=== PATIENT | male | born 1930 | race Caucasian/White ===

== ENCOUNTER 2018-07-30 11:49 | Inpatient (IN) ==
[2018-07-30] MEDS ORDERED: ALBUTEROL 0.083% NEBU SOLN 3 ML VIAL NEB STA ×2 (12:18→14:50)
[2018-07-30] MEDS ORDERED: SODIUM CHLORIDE 0.9% 1000ML 500 ML IV ONE ×2 (12:18→12:38)
[2018-07-30 12:19] LABS: Hematocrit (blood only) 29.7 % (42-52); Mean Corpuscular Hgb Conc 33.7 g/dL (32-36); Mean Corpuscular Volume 87.9 fL (80-100); Mean Platelet Volume 11.4 fL (7.4-10.4); Platelet Count 164 K/uL (130-400); RDW Coefficient of Variation 12.8 % (11.5-14.5); RDW Standard Deviation 41.6 fL (36.4-46.3); Red Blood Count 3.38 M/uL (4.7-6.1); White Blood Count 12.39 K/uL (4.8-10.8)
--- NOTE | 2018-07-30 12:21 | XRay Report ---
XR chest 1V portable CLINICAL HISTORY: Sepsis COMPARISON STUDY: No previous studies for comparison. FINDINGS: The heart is at the upper limits of normal in size. There is bilateral superior hilar retra ction. There are biapical fibronodular opacities with biapical pleural thickening. The appearance fav ors a chronic process. A superimposed acute inflammatory process would be difficult to exclude withou t the benefit of prior radiographs. Underlying emphysema is suspected. There is no failure. There are no pleural effusions.[ IMPRESSION: Biapical fibronodular opacities with superior hilar retraction. A chronic process is favo red. If prior radiographs could be obtained, they would be of value to confirm this impression. Electronically signed by: Simon Daugherty M.D. 07/30/2018 12:20 PM
[2018-07-30] MEDS ORDERED: LEVOFLOXACIN/D5W 750 MG/150 ML BAG IV STA (12:37)
[2018-07-30] MEDS ORDERED: PIPERACILL/TAZOBAC CONSULT ACTIVE PRN (12:37)
[2018-07-30] MEDS ORDERED: PIPERACILLIN/TAZOBACTAM 4.5 GM/120 ML BAG IV ONE (12:37)
[2018-07-30 12:39] LABS: Albumin Globulin Ratio 0.6 (0.9-2); BUN Creatinine Ratio 17.2 (10-20); Bilirubin,Total 0.4 mg/dl (0.2-1); Calcium 8.9 mg/dl (8.5-10.1); Creatine Kinase MB 2.7 ng/ml (0.5-3.6); Creatinine Clr Calc Pharmacy 45.4 ml/min; Est GFR (African American) 79.5; Est GFR (Non-African American) 68.6; Globulin 4.7 gm/dl (2.5-4.0); Potassium 4.3 mmol/L (3.5-5.1); Total Protein 7.7 gm/dl (6.4-8.2); Troponin I 0.043 ng/ml (0-0.045)
[2018-07-30 12:40] LABS: INR 1.1 (0.9-1.1); Partial Thromboplastin Ratio 1.1; Partial Thromboplastin Time 29.1 Seconds (21.0-31.0); Prothrombin Time 11.3 Seconds (9.0-12.0)
[2018-07-30 12:54] LABS: Appearance Urine Clear (Clear); Bilirubin Urine Negative (Negative); Color Urine Yellow; Glucose Urine UA Negative (Negative); Ketones Urine 1+ (Negative); Leukocyte Esterase Urine Negative (Negative); Nitrite Urine Negative (Negative); Protein Urine 2+ (Negative); Specific Gravity Urine 1.025 (1.000-1.030); Urobilinogen Urine Negative (Negative); pH Urine 5.5 (4.5-7.5)
[2018-07-30 12:56] LABS: Basophils # (auto) 0.03 K/uL (0-0.2); Basophils % (auto) 0.2 %; Dohle Bodies 1+; Eosinophils # (auto) 0.01 K/uL (0-0.5); Eosinophils % (auto) 0.1 %; Immature Granulocytes # (auto) 0.04 K/uL (0.00-0.02); Immature Granulocytes % (auto) 0.3 %; Lymphocytes # (auto) 1.13 K/uL (1.2-3.4); Lymphocytes % (auto) 9.1 %; Monocytes # (auto) 1.35 K/uL (0.11-0.59); Monocytes % (auto) 10.9 %; Neutrophils # (auto) 9.83 K/uL (1.4-6.5); Neutrophils % (auto) 79.4 %
[2018-07-30 13:17] LABS: RBC Urine 0-4 /hpf (0-4)
[2018-07-30 13:18] LABS: Bacteria Urine 1+ (Negative)
[2018-07-30 13:21] LABS: Influenza A virus by PCR Neg for Influ A (Neg); Influenza B virus by PCR Neg for Influ B (Neg)
[2018-07-30 13:24] LABS: Lyme Ab IgM w/WB Rflx Negative (Negative)
[2018-07-30 13:33] LABS: Lyme Ab IgG w/WB Rflx Positive (Negative)
[2018-07-30] MEDS ORDERED: DiphenhydrAMINE HCL 50 MG/ML VIAL IV STA (13:47)
[2018-07-30] MEDS ORDERED: methylPREDNISolone 125 MG/2 ML VIAL IV STA (13:47)
[2018-07-30] MEDS ORDERED: OPTIRAY 320 125ml IV PRN (14:25)
--- NOTE | 2018-07-30 14:35 | CT Scan Report ---
CT ANGIOGRAM OF THE CHEST CLINICAL HISTORY: Shortness of breath. Possible pulmonary embolism. Abnormal chest x-ray. COMPARISON STUDY: Chest x-ray dated 07/30/2018 TECHNIQUE: Following the IV administration of 120 mL of Optiray-320, CT angiogram of the thorax was p erformed from the thoracic inlet to the lung bases utilizing the pulmonary embolus protocol. Images a re reviewed in the axial, sagittal, and coronal planes. IV contrast was administered without complica tion. MIP imaging was performed. A dose lowering technique was utilized adhering to the principles o f ALARA. CT DOSE: 390.36 mGycm FINDINGS: There are mildly enlarged mediastinal and bilateral hilar lymph nodes. There was no evidence of thoracic aortic dilatation. There were no pulmonary artery filling defects to indicate acute pulmonary embolism. The study is somewhat compromised due to respiratory motion artifact. There are small bilateral pleural effusions. There are bilateral upper lobe airspace opacities with a subpleural distribution and associated bronc hiectasis. There are also areas of subpleural calcification. Airspace opacities are also present with in the right middle lobe and right upper lobe. A superimposed infectious/inflammatory process must be considered. IMPRESSION: 1. Examination compromised due to respiratory motion artifact 2. No evidence of acute pulmonary embolism 3. Biapical opacities with associated calcifications and bronchiectasis with upper lobe volume loss. The findings are felt to in part be chronic 4. Mild mediastinal and hilar lymphadenopathy 5. Additional airspace opacities are present within the right upper lobe anteriorly, and right middle lobe. A superimposed acute pneumonia must be considered. Imaging subsequent to treatment is recommen ded in follow-up. Electronically signed by: Simon Daugherty M.D. 07/30/2018 2:34 PM
--- NOTE | 2018-07-30 16:12 | History & Physical Report ---
Date of Service July 30, 2018 Assessment & Plan (1) Pneumonia: Sepsis Meet sepsis criteria (Temp 102.5 and elevated WBC) + pneumonia on CT chest Was seen by PCP office for flu like symptoms today. Had CXR done at the PCP office that indicated possible RUL pneumonia. CTA chest done in the ER showed no evidence of acute pulmonary embolism. Biapical opacities with associated calcifications and bronchiectasis and airspace opacities are present within the right upper lobe anteriorly, and right middle lobe Influenza PCR negative Febrile on admission with elevated WBC Received Zosyn and levaquin and prednisone in the ER Will continue Zosyn for now Received IVF Blood cx and urine cx pending Anaplasma, Ehrlichia and Lyme dx collected in the ER Monitor CBC (2) BPH (benign prostatic hyperplasia): Stable Continue proscar and terazosin (3) Severe aortic stenosis: Last saw cardiology on 07/05/18. During last cardiology appt he was reluctant, about any cardiac procedure such as TAVR, but would like to discuss it again with his next visit in 6 months with his cardiology Stable (4) Glaucoma: Continue Dorzolamide and latanoprost Stable (5) Dyslipidemia: Continue crestor Stable (6) Hyponatremia: Possible related to poor oral intake Na on admission 131 received IVF monitor BMP (7) Anemia: Hgb 10.7 on admission Denies any GI bleeding If H/H continues trending down, will hold aspirin and consult GI Monitor CBC DVT px on heparin subq BID CODE status Full code History of Present Illness Chief Complaint: Flu like symptoms Primary Care Provider: Vance Johnson DO 88 years old male with past medical history of BPH, aortic valve stenosis, dyslipidemia, glaucoma was sent from PCP office for pneumonia. Patient said about 4 days ago he started 12 yellowish productive cough associated with fever, sore throat and runny nose. At the doctor's office she was febrile with temp 102.5. Patient said that he was around young kids last week and also he has been around sick people with similar symptom [place]. He said that he feels weak and he does not have a good appetite. He said he has been having some mild shortness of breath recently. He said that yesterday he had one episode of diarrhea that resolved now. He denies any recent travel. At his PCP office today he had a chest x-ray done that indicated possible right upper lobe pneumonia. Denies any chest pain, palpitation, dizziness, nausea and vomiting. Allergies Allergy/AdvReac Type Severity Reaction Status Date / Time contrast dye Allergy Hives Uncoded 07/30/18 12:45 Home Medications Home Medications Medication Instructions Recorded Confirmed Type aspirin [Aspir-81] 81 mg PO DAILY 07/30/18 07/30/18 History calcium carbonate [Calcium 600] 600 mg PO DAILY 07/30/18 07/30/18 History dorzolamide 1 drp OPB BID 07/30/18 07/30/18 History finasteride [Proscar] 5 mg PO HS 07/30/18 07/30/18 History latanoprost 1 drp OPB QPM 07/30/18 07/30/18 History rosuvastatin 2.5 mg PO DAILY 07/30/18 07/30/18 History terazosin 2 mg PO HS 07/30/18 07/30/18 History Past Med/Surg History Medical History BPH (benign prostatic hyperplasia) Glaucoma Family History Other Family history non-contributory Social History Communication Ability: Effective [employer] Required: No Beliefs That Will Affect Care: None marital status: Single Current Living Situation: Alone current occupational status: employed Other Information That Helps Us Care for You: No Feels Safe at Home: Yes Safety Concerns: Feels Safe At This Time Smoking Status: Never smoker Do You Dip or Chew Tobacco: No Second Hand Exposure: No Tobacco Cessation Education Requested by Patient: No Hx Alcohol Use: No Hx Substance Use: No Review of Systems Review of Systems: All systems reviewed & are unremarkable except as noted in HPI & below Physical Exam Physical Exam: General- No acute distress Head- atraumatic Eyes- PERRL, EOMI, ENT- hearing aid, decrease hearing function Neck- supple, no JVD Lungs- clear to auscultation, No wheezing Heart- regular rhythm; +systolic murmur Abdomen- normal bowel sounds, soft, nontender Extremities- no calf tenderness Neuro- alert, oriented x 3; PERRL, EOMI; no facial palsy; no dysarthria Skin- warm & dry Results & Data Vital Signs (Past 12 Hours) Vital Signs Temp Pulse Pulse Resp BP BP Pulse Ox 07/30/18 15:56 75 16 93 07/30/18 14:38 81 20 127/61 98 07/30/18 12:51 18 96 07/30/18 12:16 37.6 C H 81 22 161/[address] ANGIOGRAM OF THE CHEST CLINICAL HISTORY: Shortness of breath. Possible pulmonary embolism. Abnormal chest x-ray. COMPARISON STUDY: Chest x-ray dated 07/30/2018 TECHNIQUE: Following the IV administration of 120 mL of Optiray-320, CT angiogram of the thorax was performed from the thoracic inlet to the lung bases utilizing the pulmonary embolus protocol. Images are reviewed in the axial, sagittal, and coronal planes. IV contrast was administered without complication. MIP imaging was performed. A dose lowering technique was utilized adhering to the principles of ALARA. CT DOSE: 390.36 mGycm FINDINGS: There are mildly enlarged mediastinal and bilateral hilar lymph nodes. There was no evidence of thoracic aortic dilatation. There were no pulmonary artery filling defects to indicate acute pulmonary embolism. The study is somewhat compromised due to respiratory motion artifact. There are small bilateral pleural effusions. There are bilateral upper lobe airspace opacities with a subpleural distribution and associated bronchiectasis. There are also areas of subpleural calcification. Airspace opacities are also present within the right middle lobe and right upper lobe. A superimposed infectious/inflammatory process must be considered. IMPRESSION: 1. Examination compromised due to respiratory motion artifact 2. No evidence of acute pulmonary embolism 3. Biapical opacities with associated calcifications and bronchiectasis with upper lobe volume loss. The findings are felt to in part be chronic 4. Mild mediastinal and hilar lymphadenopathy 5. Additional airspace opacities are present within the right upper lobe anteriorly, and right middle lobe. A superimposed acute pneumonia must be considered. Imaging subsequent to treatment is recommended in follow-up. Electronically signed by: Simon Daugherty M.D. 07/30/2018 2:34 PM Dictated: 07/30/18 1428 XR chest 1V portable CLINICAL HISTORY: Sepsis COMPARISON STUDY: No previous studies for comparison. FINDINGS: The heart is at the upper limits of normal in size. There is bilateral superior hilar retraction. There are biapical fibronodular opacities with b iapical pleural thickening. The appearance favors a chronic process. A superimposed acute inflammatory process would be difficult to exclude without the benefit of prior radiographs. Underlying emphysema is suspected. There is no failure. There are no pleural effusions.[ IMPRESSION: Biapical fibronodular opacities with superior hilar retraction. A chronic process is favored. If prior radiographs could be obtained, they would be of value to confirm this impression. Electronically signed by: Simon Daugherty M.D. 07/30/2018 12:20 PM Dictated: 07/30/18 1218 Transcribed: 07/30/18 1218
[2018-07-30] MEDS: PIPERACILLIN/TAZOBACTAM 3.375 GM in DEXTROSE 5% 100 ML IV SCH (18:26)
[2018-07-30] MEDS ORDERED: guaiFENesin SUGAR FREE 200 MG/10 ML UDC PO PRN (18:34)
[2018-07-30] MEDS: ALBUT/IPRATROP 3MG/0.5MG NEB 3 ML VIAL NEB SCH (19:25)
--- NOTE | 2018-07-30 20:46 | Emergency Department Note ---
Entered by Mandi Shah acting as a scribe for History of Present Illness General Chief complaint: Shortness of Breath/Dyspnea Stated complaint: weakness Time Seen by Provider: 07/30/18 11:50 Source: patient and EMS History of Present Illness Onset (ago): day(s) (a few days ago) Location: chest Pain Consistency: + other (episode) Quality: + other (shortness of breath) Relieved By: + medication (Tylenol, Zofran) Associated symptoms: + cough, + fever/chills (fever) and + nausea/vomiting (nausea) The patient is an 88 year old male who presents to the ED with complaints of an episode of shortness of breath starting a few days ago. The patient states that he has had flu like symptoms including fevers, a cough, and nausea. He states that he went to the [facility] this morning and they sent him here to the ED for concerns of a possible pneumonia in his right upper lung. He notes that he was around a sick child on Mothers Day and one [place] was also [place]. EMS notes that they gave the patient Tylenol and Zofran on the way in. Home Medications Home Medications Medication Instructions Recorded Confirmed Type aspirin [Aspir-81] 81 mg PO DAILY 07/30/18 07/30/18 History calcium carbonate [Calcium 600] 600 mg PO DAILY 07/30/18 07/30/18 History dorzolamide 1 drp OPB BID 07/30/18 07/30/18 History finasteride [Proscar] 5 mg PO HS 07/30/18 07/30/18 History latanoprost 1 drp OPB QPM 07/30/18 07/30/18 History rosuvastatin 2.5 mg PO DAILY 07/30/18 07/30/18 History terazosin 2 mg PO HS 07/30/18 07/30/18 History Allergies Allergy/AdvReac Type Severity Reaction Status Date / Time contrast dye Allergy Hives Uncoded 07/30/18 12:45 Past Med/Surg History Medical History BPH (benign prostatic hyperplasia) Glaucoma Family History Other Family history non-contributory Social History Communication Ability: Effective Lookback Coordinator Required: No Beliefs That Will Affect Care: None marital status: Single Current Living Situation: Alone current occupational status: employed Other Information That Helps Us Care for You: No Feels Safe at Home: Yes Safety Concerns: Feels Safe At This Time Smoking Status: Never smoker Do You Dip or Chew Tobacco: No Second Hand Exposure: No Tobacco Cessation Education Requested by Patient: No Hx Alcohol Use: No Hx Substance Use: No Review of Systems See HPI for pertinent positives & negatives. and A total of 10 systems reviewed and were otherwise negative Physical Exam Vital Signs Vital Signs - 24 hr 07/30/18 12:16 07/30/18 12:51 07/30/18 14:38 Temperature 37.6 C H Temperature Source Oral Sepsis Recent Fever Within 48 Hours No Sepsis Action Taken by Nursing No Action Required Pulse Rate 81 Pulse Rate [Right Finger] 81 Pulse Rhythm Regular Pulse Rhythm [Right Finger] Regular Pulse Strength Normal Pulse Strength [Right Finger] Normal Respiratory Rate 22 18 20 Respiratory Effort / Characteristics Non-Labored Spontaneous Non-Labored Spontaneous Non-Labored Spontaneous Respiratory Depth Normal Normal Respiratory Pattern Regular Regular Blood Pressure 161/72 H Blood Pressure [Right Arm] 127/61 Blood Pressure Mean 101 Blood Pressure Mean [Right Arm] 83 Blood Pressure Position [Right Arm] Lying Pulse Oximetry 97 96 98 Oxygen Delivery Method Room Air Room Air Room Air 07/30/18 15:38 07/30/18 15:56 Temperature Temperature Source Sepsis Recent Fever Within 48 Hours Sepsis Action Taken by Nursing Pulse Rate Pulse Rate [Right Finger] 84 75 Pulse Rhythm Pulse Rhythm [Right Finger] Pulse Strength Pulse Strength [Right Finger] Respiratory Rate 20 16 Respiratory Effort / Characteristics Non-Labored Spontaneous Respiratory Depth Respiratory Pattern Blood Pressure Blood Pressure [Right Arm] 119/65 Blood Pressure Mean Blood Pressure Mean [Right Arm] 83 Blood Pressure Position [Right Arm] Pulse Oximetry 96 93 Oxygen Delivery Method Room Air GENERAL: Awake, alert, well-appearing, in no acute distress HENT: Normocephalic, atraumatic. Oropharynx unremarkable. EYES: Normal conjunctiva. Sclera non-icteric. NECK: Supple. No nuchal rigidity. FROM. No JVD. RESPIRATORY: Clear to auscultation. CARDIAC: Regular rate, normal rhythm. Extremities warm and well perfused. Pulses equal. ABDOMEN: Soft, non-distended. No tenderness to palpation. No rebound or guarding. No masses. RECTAL: Deferred. MUSCULOSKELETAL: Chest examination reveals no tenderness. The back is s ymmetrical on inspection without obvious abnormality. There is no CVA tenderness to palpation. No joint edema. LOWER EXTREMITIES: Calves are equal size bilaterally and non-tender. No edema. No discoloration. NEURO: Normal sensorium. No sensory or motor deficits noted. SKIN: No rash or jaundice noted. Course 1154: The patient was evaluated in room A4B. A complete history and physical exam was performed. 1148: I reevaluated the patient and updated him on his test results. I discussed the treatment plan with him. He verbally agrees and understands. 1459: I discussed the patient's case with Dr. Maxx Henderson. He will evaluate the patient for further management. Consultations Consultation #1: I discussed the patient's case with Dr. Maxx Henderson. He will evaluate the patient for further management. Time: 14:59 Administered Medications Albuterol (Duoneb) 3 ml NEB QIDR RAVINDRA Stop: 08/29/18 19:59 Last Admin: 07/30/18 19:25 Dose: 3 ml Documented by: [id number] Piperacillin Sod/Tazobactam (Sod 3.375 gm/ Dextrose) 115 mls @ 28.75 mls/hr IV Q8H [facility]; Protocol Stop: 08/06/18 17:59 Last Admin: 07/30/18 18:26 Dose: 28.8 mls/hr Documented by: [id number] Discontinued Medications Albuterol (Ventolin 0.083% 2.5mg/3ml) 2.5 mg NEB NOW STA Stop: 07/30/18 12:19 Last Admin: 07/30/18 12:49 Dose: 2.5 mg Documented by: [id number] Albuterol (Ventolin 0.083% 2.5mg/3ml) 2.5 mg NEB NOW STA Stop: 07/30/18 14:51 Last Admin: 07/30/18 15:56 Dose: 2.5 mg Documented by: [id number] Diphenhydramine HCl (Benadryl) 25 mg IV NOW STA Stop: 07/30/18 13:48 Last Admin: 07/30/18 14:07 Dose: 25 mg Documented by: [id number] Sodium Chloride (Nss 1000ml) 500 mls @ 999 mls/hr IV .Q31M ONE Stop: 07/30/18 12:48 Last Infusion: 07/30/18 14:38 Dose: 0 mls/hr Documented by: [id number] Admin: 07/30/18 12:46 Dose: 999 mls/hr Documented by: [id number] Levofloxacin/Dextrose (Levaquin/D5w) 750 mg in 150 mls @ 100 mls/hr IV NOW STA Stop: 07/30/18 14:06 Last Infusion: 07/30/18 16:57 Dose: 0 mls/hr Documented by: [id number] Admin: 07/30/18 14:30 Dose: 100 mls/hr Documented by: [id number] Sodium Chloride (Nss 1000ml) 500 mls @ 999 mls/hr IV .Q31M ONE Stop: 07/30/18 13:08 Last Infusion: 07/30/18 14:38 Dose: 0 mls/hr Documented by: [id number] Admin: 07/30/18 12:46 Dose: 999 mls/hr Documented by: [id number] Piperacillin Sod/Tazobactam Sod (Zosyn) 4.5 gm in 120 mls @ 240 mls/hr IV NOW ONE Stop: 07/30/18 13:06 Last Infusion: 07/30/18 14:38 Dose: 0 mls/hr Documented by: [id number] Admin: 07/30/18 13:07 Dose: 240 mls/hr Documented by: [id number] Ranitidine HCl 50 mg/ Dextrose 102 mls @ 200 mls/hr IV Q8H RAVNIDRA Stop: 08/29/18 13:59 Last Infusion: 07/30/18 14:37 Dose: 0 mls/hr Documented by: [id number] Admin: 07/30/18 14:08 Dose: 200 mls/hr Documented by: [id number] Infusion: 07/30/18 14:08 Dose: 200 mls/hr Documented by: [id number] Admin: 07/30/18 14:08 Dose: 200 mls/hr Documented by: [id number] Ioversol (Optiray 320 125ml) 120 ml IV ONCE PRN PRN Reason: Interaction Checking Stop: 08/03/18 14:24 Last Admin: 07/30/18 14:25 Dose: 120 ml Documented by: [id number] Methylprednisolone (Solumedrol) 125 mg IV NOW STA Stop: 07/30/18 13:48 Last Admin: 07/30/18 14:08 Dose: 125 mg Documented by: [id number] Medical Decision Making Differential Diagnosis Differential diagnosis: Etiologies such as viral syndrome, otitis, pharyngitis, pneumonia, influenza, meningitis, urinary tract infection, septic arthritis, soft tissue infectious process, intra-abdominal process, sepsis, bacteremia, as well as others were entertained. Medical Records Attestation: I reviewed the patient's medical records. Home Medications Current Medication List: was personally reviewed by co Laboratory Data Attestation: I reviewed the patient's lab results. Result diagrams: 07/30/18 12:00 07/30/18 12:00 Lab Results 07/30/18 07/30/18 07/30/18 Range/Units 12:00 12:00 12:00 WBC 12.39 H (4.8-10.8) K/uL RBC 3.38 L (4.7-6.1) M/uL Hgb 10.0 L (14.0-18.0) g/dL Hct 29.7 L (42-52) % MCV 87.9 (80-100) fL MCH 29.6 (25-34) pg MCHC 33.7 (32-36) g/dL RDW Std Deviation 41.6 (36.4-46.3) fL RDW Coeff of Lazarus 12.8 (11.5-14.5) % Plt Count 164 (130-400) K/uL MPV 11.4 H (7.4-10.4) fL Immature Gran % (Auto) 0.3 % Neut % (Auto) 79.4 % Lymph % (Auto) 9.1 % Adams % (Auto) 10.9 % Eos % (Auto) 0.1 % Baso % (Auto) 0.2 % Immature Gran # (Auto) 0.04 H (0.00-0.02) K/uL Neut # (Auto) 9.83 H (1.4-6.5) K/uL Lymph # (Auto) 1.13 L (1.2-3.4) K/uL Adams # (Auto) 1.35 H (0.11-0.59) K/uL Eos # (Auto) 0.01 (0-0.5) K/uL Baso # (Auto) 0.03 (0-0.2) K/uL Hypersegmented Neuts 1+ Dohle Bodies 1+ PT 11.3 (9.0-12.0) Seconds INR 1.1 (0.9-1.1) APTT 29.1 (21.0-31.0) Seconds PTT Ratio 1.1 Sodium 131 L (136-145) mmol/L Potassium 4.3 (3.5-5.1) mmol/L Chloride 98 (98-107) mmol/L Carbon Dioxide 26 (21-32) mmol/L Anion Gap 7.0 (3-11) BUN 17 (7-18) mg/dl Creatinine 0.98 (0.6-1.4) mg/dl Est Cr Clr Drug Dosing 45.4 ml/min Est GFR ( Amer) 79.5 Est GFR (Non-Af Amer) 68.6 BUN/Creatinine Ratio 17.2 (10-20) Glucose 112 H (70-99) mg/dl Calcium 8.9 (8.5-10.1) mg/dl Total Bilirubin 0.4 (0.2-1) mg/dl AST 39 H (15-37) U/L ALT 28 (12-78) U/L Alkaline Phosphatase 69 (45-117) U/L Total Creatine Kinase 275 (39-308) U/L CK-MB (CK-2) 2.7 (0.5-3.6) ng/ml CK/CKMB % Calc 1.0 (0-3.0) Troponin I 0.043 (0-0.045) ng/ml Total Protein 7.7 (6.4-8.2) gm/dl Albumin 3.0 L (3.4-5.0) gm/dl Globulin 4.7 H (2.5-4.0) gm/dl Albumin/Globulin Ratio 0.6 L (0.9-2) Procalcitonin (0-0.5) ng/ml Urine Color Urine Appearance (Clear) Urine pH (4.5-7.5) Ur Specific [place] (1.000-1.030) Urine Protein (Negative) Urine Glucose (UA) (Negative) Urine Ketones (Negative) Urine Blood (Negative) Urine Nitrite (Negative) Urine Bilirubin (Negative) Urine Urobilinogen (Negative) Ur Leukocyte Esterase (Negative) Urine RBC (0-4) /hpf Urine WBC (0-5) /hpf Ur Epithelial Cells (0-5) /lpf Urine Bacteria (Negative) Lyme Disease IgG Ab (Negative) Lyme Disease IgM Ab (Negative) Influenza Type A (PCR) (Neg) Influenza Type B (PCR) (Neg) 07/30/18 07/30/18 07/30/18 Range/Units 12:00 12:40 12:40 WBC (4.8-10.8) K/uL RBC (4.7-6.1) M/uL Hgb (14.0-18.0) g/dL Hct (42-52) % MCV (80-100) fL MCH (25-34) pg MCHC (32-36) g/dL RDW Std Deviation (36.4-46.3) fL RDW Coeff of Lazarus (11.5-14.5) % Plt Count (130-400) K/uL MPV (7.4-10.4) fL Immature Gran % (Auto) % Neut % (Auto) % Lymph % (Auto) % Adams % (Auto) % Eos % (Auto) % Baso % (Auto) % Immature Gran # (Auto) (0.00-0.02) K/uL Neut # (Auto) (1.4-6.5) K/uL Lymph # (Auto) (1.2-3.4) K/uL Adams # (Auto) (0.11-0.59) K/uL Eos # (Auto) (0-0.5) K/uL Baso # (Auto) (0-0.2) K/uL Hypersegmented Neuts Dohle Bodies PT (9.0-12.0) Seconds INR (0.9-1.1) APTT (21.0-31.0) Seconds PTT Ratio Sodium (136-145) mmol/L Potassium (3.5-5.1) mmol/L Chloride (98-107) mmol/L Carbon Dioxide (21-32) mmol/L Anion Gap (3-11) BUN (7-18) mg/dl Creatinine (0.6-1.4) mg/dl Est Cr Clr Drug Dosing ml/min Est GFR ( Amer) Est GFR (Non-Af Amer) BUN/Creatinine Ratio (10-20) Glucose (70-99) mg/dl Calcium (8.5-10.1) mg/dl Total Bilirubin (0.2-1) mg/dl AST (15-37) U/L ALT (12-78) U/L Alkaline Phosphatase (45-117) U/L Total Creatine Kinase (39-308) U/L CK-MB (CK-2) (0.5-3.6) ng/ml CK/CKMB % Calc (0-3.0) Troponin I (0-0.045) ng/ml Total Protein (6.4-8.2) gm/dl Albumin (3.4-5.0) gm/dl Globulin (2.5-4.0) gm/dl Albumin/Globulin Ratio (0.9-2) Procalcitonin 0.10 (0-0.5) ng/ml Urine Color Yellow Urine Appearance Clear (Clear) Urine pH 5.5 (4.5-7.5) Ur Specific [place] 1.025 (1.000-1.030) Urine Protein 2+ H (Negative) Urine Glucose (UA) Negative (Negative) Urine Ketones 1+ H (Negative) Urine Blood 2+ H (Negative) Urine Nitrite Negative (Negative) Urine Bilirubin Negative (Negative) Urine Urobilinogen Negative (Negative) Ur Leukocyte Esterase Negative (Negative) Urine RBC 0-4 (0-4) /hpf Urine WBC 5-10 H (0-5) /hpf Ur Epithelial Cells 0-5 (0-5) /lpf Urine Bacteria 1+ H (Negative) Lyme Disease IgG Ab Positive A (Negative) Lyme Disease IgM Ab Negative (Negative) Influenza Type A (PCR) Neg for Influ A (Neg) Influenza Type B (PCR) Neg for Influ B (Neg) Imaging Data Radiologist's Impression: Radiology results as stated below per my review and the radiologist's interpretation: XR chest 1V portable CLINICAL HISTORY: Sepsis COMPARISON STUDY: No previous studies for comparison. FINDINGS: The heart is at the upper limits of normal in size. There is bilateral superior hilar retraction. There are biapical fibronodular opacities with biapical pleural thickening. The appearance favors a chronic process. A superimposed acute inflammatory process would be difficult to exclude without the benefit of prior radiographs. Underlying emphysema is suspected. There is no failure. There are no pleural effusions. IMPRESSION: Biapical fibronodular opacities with superior hilar retraction. A chronic process is favored. If prior radiographs could be obtained, they would be of value to confirm this impression. Electronically signed by: Simon Daugherty M.D. 07/30/2018 12:[address] ANGIOGRAM OF THE CHEST CLINICAL HISTORY: Shortness of breath. Possible pulmonary embolism. Abnormal chest x-ray. COMPARISON STUDY: Chest x-ray dated 07/30/2018 TECHNIQUE: Following the IV administration of 120 mL of Optiray-320, CT angiogram of the thorax was performed from the thoracic inlet to the lung bases utilizing the pulmonary embolus protocol. Images are reviewed in the axial, sagittal, and coronal planes. IV contrast was administered without complication. MIP imaging was performed. A dose lowering technique was utilized adhering to the principles of ALARA. CT DOSE: 390.36 mGycm FINDINGS: There are mildly enlarged mediastinal and bilateral hilar lymph nodes. There was no evidence of thoracic aortic dilatation. There were no pulmonary artery filling defects to indicate acute pulmonary embolism. The study is somewhat compromised due to respiratory motion artifact. There are small bilateral pleural effusions. There are bilateral upper lobe airspace opacities with a subpleural distribution and associated bronchiectasis. There are also areas of subpleural calcification. Airspace opacities are also present within the right middle lobe and right upper lobe. A superimposed infectious/inflammatory process must be considered. IMPRESSION: 1. Examination compromised due to respiratory motion artifact 2. No evidence of acute pulmonary embolism 3. Biapical opacities with associated calcifications and bronchiectasis with upper lobe volume loss. The findings are felt to in part be chronic 4. Mild mediastinal and hilar lymphadenopathy 5. Additional airspace opacities are present within the right upper lobe anteriorly, and right middle lobe. A superimposed acute pneumonia must be considered. Imaging subsequent to treatment is recommended in follow-up. Electronically signed by: Simon Daugherty M.D. 07/30/2018 2:34 PM ECG Data Attestation: I personally reviewed and interpreted this ECG as follows: Indication: SOB/dyspnea Rate (beats per minute): 82 Rhythm: sinus rhythm Findings: + other (septal infarct) and + PVC (occassionally); no ST depression and no ST elevation Blood Pressure Blood Pressure Findings: Normal blood pressure Blood Pressure Disposition: did not require urgent referral MDM Narrative This is an 88-year-old male who was sent in by his primary care physician's office over concerns that the patient has pneumonia. The patient was given Tylenol in the ambulance and was running a fever earlier. He has been sick for 5 days. His chest x-ray is concerning for chronic processes therefore he was sent for CAT scan of the chest. This is concerning for pneumonia in 2 lobes. I did discuss the case with the hospitalist service who agreed to admit the patient. Patient was given albuterol breathing treatments blood cultures were obtained and the patient was started on Zosyn. Patient was in agreement with the treatment plan. Impression & Plan Pneumonia Discharge Plan Visit Data *Final* Discharge Date/Time: 07/30/18 16:56 Chief Complaint: Shortness of Breath/Dyspnea Stated Complaint: weakness ED Provider: Ulysses Jenkins Discharge Problem: Pneumonia Patient Disposition: Admitted As Inpatient Discharge Instructions Interventions: ED Discharge Assessment Last Done: 07/30/18 16:56 The scribe's documentation has been prepared under my direction and personally reviewed by me in its entirety. I confirm that the note above accurately reflects all work, treatment, procedures, and medical decision making performed by me.
[2018-07-30] MEDS: TERAZOSIN HCL 1 MG CAP PO SCH (21:30)
[2018-07-30] MEDS: DORZOLAMIDE HCL 2% OPH SOLN 10 ML BTL OPB SCH (21:30)
[2018-07-30] MEDS: FINASTERIDE 5 MG TAB PO SCH (21:30)
[2018-07-30] MEDS: LATANOPROST 0.005% OP SOLN 2.5 ML BTL OPB SCH (21:31)
[2018-07-31] MEDS: PIPERACILLIN/TAZOBACTAM 3.375 GM in DEXTROSE 5% 100 ML IV SCH ×3 (02:22→18:06)
[2018-07-31 05:54] LABS: Hematocrit (blood only) 30.1 % (42-52); Hemoglobin 10.1 g/dL (14.0-18.0); Mean Corpuscular Hgb Conc 33.6 g/dL (32-36); Mean Corpuscular Volume 88.3 fL (80-100); Mean Platelet Volume 11.3 fL (7.4-10.4); Platelet Count 165 K/uL (130-400); Red Blood Count 3.41 M/uL (4.7-6.1); White Blood Count 12.53 K/uL (4.8-10.8)
[2018-07-31 06:31] LABS: BUN Creatinine Ratio 16.8 (10-20); Calcium 8.6 mg/dl (8.5-10.1); Creatinine Clr Calc Pharmacy 41.6 ml/min; Est GFR (African American) 71.5; Est GFR (Non-African American) 61.7; Potassium 4.1 mmol/L (3.5-5.1)
[2018-07-31] MEDS: ALBUT/IPRATROP 3MG/0.5MG NEB 3 ML VIAL NEB SCH ×4 (07:07→19:16)
[2018-07-31] MEDS: ENOXAPARIN INJ 30 MG/0.3 ML SYR SQ SCH (07:23)
[2018-07-31] MEDS: ASPIRIN 81 MG ECTAB PO SCH (07:23)
[2018-07-31] MEDS: ROSUVASTATIN CALCIUM 5 MG TAB PO SCH (07:23)
[2018-07-31] MEDS: DORZOLAMIDE HCL 2% OPH SOLN 10 ML BTL OPB SCH ×2 (07:24→21:01)
--- NOTE | 2018-07-31 20:35 | Hospitalist Progress Note ---
Date of Service July 31, 2018 Assessment & Plan (1) Pneumonia: Sepsis Meet sepsis criteria (Temp 102.5 and elevated WBC) + pneumonia on CT chest Was seen by PCP office for flu like symptoms today. Had CXR done at the PCP office that indicated possible RUL pneumonia. CTA chest done in the ER showed no evidence of acute pulmonary embolism. Biapical opacities with associated calcifications and bronchiectasis and airspace opacities are present within the right upper lobe anteriorly, and right middle lobe Influenza PCR negative Febrile on admission with elevated WBC Received Zosyn and levaquin and prednisone in the ER Continue IV zosyn Blood cx pending Anaplasma, Ehrlichia and Lyme dx pending Monitor CBC (2) BPH (benign prostatic hyperplasia): Stable Continue proscar and terazosin (3) Severe aortic stenosis: Last saw cardiology on 07/05/18. During last cardiology appt he was reluctant, about any cardiac procedure such as TAVR, but would like to discuss it again with his next visit in 6 months with his cardiology Stable (4) Glaucoma: Continue Dorzolamide and latanoprost Stable (5) Dyslipidemia: Continue crestor Stable (6) Hyponatremia: Possible related to poor oral intake Na on admission 131, improves to 133 today received IVF monitor BMP (7) Anemia: Hgb 10.7 on admission Denies any GI bleeding If H/H continues trending down, will hold aspirin and consult GI Monitor CBC DVT px on heparin Lovenox daily CODE status Full code Disposition Possible discharge tomorrow Subjective Pt was seen and examined Sitting in chair with no distress Pt said that his breathing is much better He has been working in the hallway with no problem He said that he feels his balance a little off Denies any chest pain, palpitation and SOB Physical Exam Physical Exam: General- No acute distress Head- atraumatic Eyes- PERRL, EOMI, ENT- hearing aid, decrease hearing function Neck- supple, no JVD Lungs- clear to auscultation, No wheezing Heart- regular rhythm; +systolic murmur Abdomen- normal bowel sounds, soft, nontender Extremities- no calf tenderness Neuro- alert, oriented x 3; PERRL, EOMI; no facial palsy; no dysarthria Skin- warm & dry Results & Data Vital Signs (Past 12 Hours) Vital Signs Temp Pulse Resp BP Pulse Ox 07/31/18 19:17 74 16 98 07/31/18 15:19 36.6 C 97 H 20 128/58 L 97 07/31/18 15:09 65 16 98 07/31/18 11:05 65 17 97
[2018-07-31] MEDS: LATANOPROST 0.005% OP SOLN 2.5 ML BTL OPB SCH (21:02)
[2018-07-31] MEDS: FINASTERIDE 5 MG TAB PO SCH (21:03)
[2018-07-31] MEDS: TERAZOSIN HCL 1 MG CAP PO SCH (21:03)
[2018-08-01] MEDS: PIPERACILLIN/TAZOBACTAM 3.375 GM in DEXTROSE 5% 100 ML IV SCH ×2 (02:28→09:52)
[2018-08-01] MEDS: ALBUT/IPRATROP 3MG/0.5MG NEB 3 ML VIAL NEB SCH ×3 (06:55→15:33)
[2018-08-01] MEDS: ROSUVASTATIN CALCIUM 5 MG TAB PO SCH (07:50)
[2018-08-01] MEDS: ENOXAPARIN INJ 30 MG/0.3 ML SYR SQ SCH (07:50)
[2018-08-01] MEDS: DORZOLAMIDE HCL 2% OPH SOLN 10 ML BTL OPB SCH (07:50)
[2018-08-01] MEDS: ASPIRIN 81 MG ECTAB PO SCH (07:50)
[2018-08-01 08:16] LABS: Hematocrit (blood only) 31.1 % (42-52); Mean Corpuscular Hgb Conc 35.4 g/dL (32-36); Mean Corpuscular Volume 86.9 fL (80-100); Mean Platelet Volume 11.1 fL (7.4-10.4); Platelet Count 215 K/uL (130-400); RDW Coefficient of Variation 13.1 % (11.5-14.5); RDW Standard Deviation 42.4 fL (36.4-46.3); Red Blood Count 3.58 M/uL (4.7-6.1); White Blood Count 18.09 K/uL (4.8-10.8)
[2018-08-01] MEDS ORDERED: predniSONE 20 MG TAB PO SCH (14:30)
--- NOTE | 2018-08-01 15:03 | Hospitalist Progress Note ---
Date of Service August 01, 2018 Assessment & Plan (1) Pneumonia: Sepsis Meet sepsis criteria (Temp 102.5 and elevated WBC) + pneumonia on CT chest Was seen by PCP office for flu like symptoms today. Had CXR done at the PCP office that indicated possible RUL pneumonia. CTA chest done in the ER showed no evidence of acute pulmonary embolism. Biapical opacities with associated calcifications and bronchiectasis and airspace opacities are present within the right upper lobe anteriorly, and right middle lobe Influenza PCR negative Febrile on admission with elevated WBC Received Zosyn and levaquin and solumedrol in the ER Continue IV zosyn WBC elevated today possible related to steroid Has been afebrile Blood cx no growth Lyme IgG Ab positive Anaplasma, Ehrlichia and Lyme dx pending (2) BPH (benign prostatic hyperplasia): Stable Continue proscar and terazosin (3) Severe aortic stenosis: Last saw cardiology on 07/05/18. During last cardiology appt he was reluctant, about any cardiac procedure such as TAVR, but would like to discuss it again with his next visit in 6 months with his cardiology Stable (4) Glaucoma: Continue Dorzolamide and latanoprost Stable (5) Dyslipidemia: Continue crestor Stable (6) Hyponatremia: Possible related to poor oral intake Na on admission 131, improves to 133 received IVF monitor BMP (7) Anemia: Hgb 10.7 on admission Denies any GI bleeding Hgb stable today Monitor CBC DVT px on heparin Lovenox daily CODE status Full code Disposition Possible discharge today Follow up with your PCP Subjective Pt was seen and examined Sitting in bed with no distress Pt said that he feels fine today He said that cough improves He walked in the hallway with no distress Denies any chest pain, palpitation, dizziness and SOB Physical Exam Physical Exam: General- No acute distress Head- atraumatic Eyes- PERRL, EOMI, ENT- hearing aid, decrease hearing function Neck- supple, no JVD Lungs-+mild rhonchi Heart- regular rhythm; +systolic murmur Abdomen- normal bowel sounds, soft, nontender Extremities- no calf tenderness Neuro- alert, oriented x 3; PERRL, EOMI; no facial palsy; no dysarthria Skin- warm & dry Results & Data Vital Signs (Past 12 Hours) Vital Signs Temp Pulse Resp BP Pulse Ox 08/01/18 10:53 76 18 97 08/01/18 07:51 36.7 C 102 H 18 126/59 L 99 08/01/18 06:56 75 16 97
[2018-08-01] MEDS ORDERED: levoFLOXacin 750 MG TAB PO SCH (16:00)
--- NOTE | 2018-08-02 01:27 | Discharge Summary ---
Date of Service August 01, 2018 Admission HPI Per Admitting Provider 88 years old male with past medical history of BPH, aortic valve stenosis, dyslipidemia, glaucoma was sent from PCP office for pneumonia. Patient said about 4 days ago he started 12 yellowish productive cough associated with fever, sore throat and runny nose. At the doctor's office she was febrile with temp 102.5. Patient said that he was around young kids last week and also he has been around sick people with similar symptom [place]. He said that he feels weak and he does not have a good appetite. He said he has been having some mild shortness of breath recently. He said that yesterday he had one episode of diarrhea that resolved now. He denies any recent travel. At his PCP office today he had a chest x-ray done that indicated possible right upper lobe pneumonia. Denies any chest pain, palpitation, dizziness, nausea and vomiting. Admission Exam Per Admitting Provider General- No acute distress Head- atraumatic Eyes- PERRL, EOMI, ENT- hearing aid, decrease hearing function Neck- supple, no JVD Lungs- clear to auscultation, No wheezing Heart- regular rhythm; +systolic murmur Abdomen- normal bowel sounds, soft, nontender Extremities- no calf tenderness Neuro- alert, oriented x 3; PERRL, EOMI; no facial palsy; no dysarthria Skin- warm & dry Principal Diagnosis Sepsis Pneumonia BPH Severe aortic stenosis Hyponaremia Anemia Discharge Exam General- No acute distress Head- atraumatic Eyes- PERRL, EOMI, ENT- hearing aid, decrease hearing function Neck- supple, no JVD Lungs-+mild rhonchi Heart- regular rhythm; +systolic murmur Abdomen- normal bowel sounds, soft, nontender Extremities- no calf tenderness Neuro- alert, oriented x 3; PERRL, EOMI; no facial palsy; no dysarthria Skin- warm & dry Discharge Data Allergies Allergy/AdvReac Type Severity Reaction Status Date / Time contrast dye Allergy Hives Uncoded 07/30/18 12:45 Consultations 07/30/18 15:00 ED Decision to Admit Stat Ordered Studies 07/30/18 12:37 CT angio chest PE protocol Stat CT ANGIOGRAM OF THE CHEST CLINICAL HISTORY: Shortness of breath. Possible pulmonary embolism. Abnormal chest x-ray. COMPARISON STUDY: Chest x-ray dated 07/30/2018 TECHNIQUE: Following the IV administration of 120 mL of Optiray-320, CT angiogram of the thorax was performed from the thoracic inlet to the lung bases utilizing the pulmonary embolus protocol. Images are reviewed in the axial, sagittal, and coronal planes. IV contrast was administered without complication. MIP imaging was performed. A dose lowering technique was utilized adhering to the principles of ALARA. CT DOSE: 390.36 mGycm FINDINGS: There are mildly enlarged mediastinal and bilateral hilar lymph nodes. There was no evidence of thoracic aortic dilatation. There were no pulmonary artery filling defects to indicate acute pulmonary embolism. The study is somewhat compromised due to respiratory motion artifact. There are small bilateral pleural effusions. There are bilateral upper lobe airspace opacities with a subpleural distribution and associated bronchiectasis. There are also areas of subpleural calcification. Airspace opacities are also present within the right middle lobe and right upper lobe. A superimposed infectious/inflammatory process must be considered. IMPRESSION: 1. Examination compromised due to respiratory motion artifact 2. No evidence of acute pulmonary embolism 3. Biapical opacities with associated calcifications and bronchiectasis with upper lobe volume loss. The findings are felt to in part be chronic 4. Mild mediastinal and hilar lymphadenopathy 5. Additional airspace opacities are present within the right upper lobe anteriorly, and right middle lobe. A superimposed acute pneumonia must be considered. Imaging subsequent to treatment is recommended in follow-up. Electronically signed by: Simon Daugherty M.D. 07/30/2018 2:34 PM Dictated: 07/30/18 1428 Transcribed: 07/30/18 1428 XR chest 1V portable CLINICAL HISTORY: Sepsis COMPARISON STUDY: No previous studies for comparison. FINDINGS: The heart is at the upper limits of normal in size. There is bilateral superior hilar retraction. There are biapical fibronodular opacities with biapical pleural thickening. The appearance favors a chronic process. A superimposed acute inflammatory process would be difficult to exclude without the benefit of prior radiographs. Underlying emphysema is suspected. There is no failure. There are no pleural effusions.[ IMPRESSION: Biapical fibronodular opacities with superior hilar retraction. A chronic process is favored. If prior radiographs could be obtained, they would be of value to confirm this impression. Electronically signed by: Simon Daugherty M.D. 07/30/2018 12:20 PM Dictated: 07/30/18 1218 Transcribed: 07/30/18 1218 Hospital Course (1) Pneumonia: Sepsis Meet sepsis criteria (Temp 102.5 and elevated WBC) + pneumonia on CT chest Was seen by PCP office for flu like symptoms today. Had CXR done at the PCP office that indicated possible RUL pneumonia. CTA chest done in the ER showed no evidence of acute pulmonary embolism. Biapical opacities with associated calcifications and bronchiectasis and airspa ce opacities are present within the right upper lobe anteriorly, and right middle lobe Influenza PCR negative Febrile on admission with elevated WBC Received Zosyn and levaquin and solumedrol in the ER Continue IV zosyn WBC elevated today possible related to steroid Has been afebrile Blood cx no growth Lyme IgG Ab positive Anaplasma, Ehrlichia and Lyme dx pending (2) BPH (benign prostatic hyperplasia): Stable Continue proscar and terazosin (3) Severe aortic stenosis: Last saw cardiology on 07/05/18. During last cardiology appt he was reluctant, about any cardiac procedure such as TAVR, but would like to discuss it again with his next visit in 6 months with his cardiology Stable (4) Glaucoma: Continue Dorzolamide and latanoprost Stable (5) Dyslipidemia: Continue crestor Stable (6) Hyponatremia: Possible related to poor oral intake Na on admission 131, improves to 133 received IVF monitor BMP (7) Anemia: Hgb 10.7 on admission Denies any GI bleeding Hgb stable today Monitor CBC DVT px on heparin Lovenox daily CODE status Full code Disposition Possible discharge today Follow up with your PCP Total Time Total Time Spent Total Time Spent (In Minutes): 35 minutes Total Time Includes: Examination of the Patient, Discharge Planning, Medication Reconciliation, Communication With Other Providers and Other Discharge Plan Discharge Items Patient Disposition: Home - Self-Care Reason For Visit: PNEUMONIA Discharge Diagnosis: Sepsis Pneumonia BPH Severe aortic stenosis Hyponaremia Anemia Discharge Goals: Decrease discomfort, Improve disease control, Improve function and Increase independence Activity: Resume your previous activity Activity Comment: As tolerated Non-emergency contact: Primary Care Provider Call non-emergency contact if: you have any medication questions and your temperature is above 101 Follow-up/Referrals: Vance Johnson, [Primary Care Provider] - Diet: Heart Healthy Add Provider Instructions: Follow up appointment with your primary care provider Dr. Loyd on 08/06 @ 1:45 PM Complete the course of antibiotic Your physician will follow the result for your lyme disease and anaplasmosis that are pending now Check BMP in 1 week to monitor sodium level Check CBC in 1 week to monitor WBC Fall precaution Prescriptions: New prednisone 20 mg tablet 20 mg PO DAILY Qty: 5 RF: 0 levofloxacin 500 mg Tablet 500 mg PO DAILY@1100 Qty: 5 RF: 0 guaifenesin 200 mg tablet 200 mg PO TID PRN (Reason: congestion) 5 Days Qty: 15 RF: 0 Continued latanoprost 0.005 % drops 1 drp OPB QPM RF: 0 aspirin [Aspir-81] 81 mg Tablet,Delayed Release (Dr/Ec) 81 mg PO DAILY RF: 0 calcium carbonate [Calcium 600] 600 mg calcium (1,500 mg) Tablet 600 mg PO DAILY RF: 0 terazosin 2 mg Capsule 2 mg PO HS RF: 0 finasteride [Proscar] 5 mg Tablet 5 mg PO HS RF: 0 dorzolamide 2 % Drops 1 drp OPB BID RF: 0 rosuvastatin 5 mg Tablet 2.5 mg PO DAILY RF: 0 Stand-Alone Forms: [facility] Discharge Orders: Discharge Order (Routine); Ordered 08/01/18 Ordered By: Abimael Plunkett Admission Data Admit Date/Time: 07/30/18 16:14 Attending Provider: Abimael Plunkett Admit Provider: Abimael Plunkett Primary Care Provider: Vance Johnson Other Providers: Abimael Plunkett ; Jorge Katz Service: Medical Other Interventions: Discharge Summary Assessment (RN) Last Done: 08/01/18 15:38 DC Date/Time DO NOT enter until pt leaves facility: 08/01/18 16:00
[2018-08-02 21:24] LABS: Anaplasma phagocytophila IgM <1:20 (<1:20); Ehrlichia chaff IgG Ab <1:64 (<1:64); Ehrlichia chaff IgM Ab <1:20 (<1:20)
[2018-08-03 04:26] LABS: 18KDIGG Band NONREACTIVE (NONREACTIVE); 23KDIGG Band NONREACTIVE (NONREACTIVE); 23KDIGM Band NONREACTIVE (NONREACTIVE); 28KDIGG Band NONREACTIVE (NONREACTIVE); 30KDIGG Band NONREACTIVE (NONREACTIVE); 39KDIGG Band NONREACTIVE (NONREACTIVE); 39KDIGM Band NONREACTIVE (NONREACTIVE); 41KDIGG Band REACTIVE (NONREACTIVE); 41KDIGM Band NONREACTIVE (NONREACTIVE); 45KDIGG Band NONREACTIVE (NONREACTIVE); 58KDIGG Band NONREACTIVE (NONREACTIVE); 66KDIGG Band REACTIVE (NONREACTIVE); 93KDIGG Band NONREACTIVE (NONREACTIVE); Lyme Antibodies, WB IgG NEGATIVE (NEGATIVE); Lyme Antibodies, WB IgM NEGATIVE (NEGATIVE)
== END 2018-08-01 16:00 | disposition home or self-care (01) | DRG 871 ==
LOC: ED 11:49 → 4W 16:14 → SUATTDRO 16:14 → 4W 16:56

== ENCOUNTER 2019-05-13 12:59 | Inpatient (IN) ==
[2019-05-13 15:55] LABS: Basophils # (auto) 0.02 K/uL (0-0.2); Basophils % (auto) 0.3 %; Eosinophils # (auto) 0.09 K/uL (0-0.5); Eosinophils % (auto) 1.5 %; Hematocrit (blood only) 33.9 % (42-52); Immature Granulocytes # (auto) 0.01 K/uL (0.00-0.02); Immature Granulocytes % (auto) 0.2 %; Lymphocytes # (auto) 1.53 K/uL (1.2-3.4); Lymphocytes % (auto) 25.3 %; Mean Corpuscular Hemoglobin 29.6 pg (25-34); Mean Corpuscular Hgb Conc 32.4 g/dL (32-36); Mean Corpuscular Volume 91.4 fL (80-100); Mean Platelet Volume 11.4 fL (7.4-10.4); Monocytes % (auto) 9.9 %; Neutrophils # (auto) 3.79 K/uL (1.4-6.5); Neutrophils % (auto) 62.8 %; Platelet Count 169 K/uL (130-400); RDW Coefficient of Variation 13.1 % (11.5-14.5); RDW Standard Deviation 44.2 fL (36.4-46.3); Red Blood Count 3.71 M/uL (4.7-6.1); White Blood Count 6.04 K/uL (4.8-10.8)
--- NOTE | 2019-05-13 15:58 | XRay Report ---
XR chest 1V portable HISTORY: Hypertension COMPARISON: Chest 07/30/2018. FINDINGS: No pneumothorax. No pleural effusions. The heart is normal in size. Biapical reticulonodula r interstitial thickening and pleural thickening remains unchanged. No new focal lung consolidations. No evidence for pulmonary edema. IMPRESSION: Chronic biapical reticulonodular thickening persists. No new focal lung consolidations. ACT 112: Negative or not required by law. Electronically signed by: Chente Barros M.D. 05/13/2019 3:57 PM
[2019-05-13 16:10] LABS: Alanine Aminotransferase 16 U/L (12-78); Albumin Level 3.5 gm/dl (3.4-5.0); Aspartate Aminotransferase 19 U/L (15-37); BUN Creatinine Ratio 24.6 (10-20); Blood Urea Nitrogen 24 mg/dl (7-18); Carbon Dioxide 25 mmol/L (21-32); Chloride 104 mmol/L (98-107); Est GFR (African American) 79.9; Est GFR (Non-African American) 68.9; Glucose 103 mg/dl (70-99); Potassium 4.6 mmol/L (3.5-5.1); Sodium 135 mmol/L (136-145)
--- NOTE | 2019-05-13 16:12 | CT Scan Report ---
CT head/brain wo con CT DOSE: 537.48 mGy.cm HISTORY: Mental status change dizzy/visual blurring eval for cva/bleed TECHNIQUE: Multiaxial CT images of the head were performed without the use of intravenous contrast. A dose lowering technique was utilized adhering to the principles of ALARA. Comparison: None. Findings: Moderate mucosal thickening left maxillary sinus. Remaining sinuses are clear. The calvariu m and skull base are intact. The ventricles and sulci are within normal limits. There is no mass, hem atoma, midline shift, or acute infarct. Impression: No acute intracranial abnormality. ACT 112: Negative or not required by law. The above report was generated using voice recognition software. It may contain grammatical, syntax or spelling errors. Electronically signed by: Fabian Chou M.D. 05/13/2019 4:10 PM
[2019-05-13 16:16] LABS: Albumin Globulin Ratio 0.9 (0.9-2); Alkaline Phosphatase 65 U/L (45-117); Bilirubin,Total 0.2 mg/dl (0.2-1); Total Protein 7.5 gm/dl (6.4-8.2); Troponin I 0.094 ng/ml (0-0.045)
[2019-05-13] MEDS ORDERED: LABETALOL HCL IV 5 MG/ML 20ML IV STA ×2 (16:37→19:31)
--- NOTE | 2019-05-13 16:45 | Electrocardiogram Report ---
Test Reason : Blood Pressure : / mmHG Vent. Rate : 060 BPM Atrial Rate : 060 BPM P-R Int : 166 ms QRS Dur : 088 ms QT Int : 436 ms P-R-T Axes : 051 039 057 degrees QTc Int : 436 ms Normal sinus rhythm Septal infarct (cited on or before 13-MAY-2019) Abnormal ECG When compared with ECG of 30-JUL-2018 12:37, Premature ventricular complexes are no longer Present Premature atrial complexes are no longer Present Questionable change in initial forces of Septal leads Confirmed by Karthik Elizabeth ([id number]) on 05/13/2019 4:45:16 PM Referred By: ED Confirmed By:Karthik Elizabeth
[2019-05-13] MEDS ORDERED: lisinopriL 5 MG TAB PO STA (17:32)
--- NOTE | 2019-05-13 17:42 | History & Physical Report ---
Date of Service May 13, 2019 Assessment & Plan (1) HTN (hypertension): Pt is 89 y/o M with PMH BPH, severe aortic stenosis, HTN presented to ER with complaint of episode of dizziness. Today with dizziness after walking 1/4mile with some blurry vision. Reported dizziness 2 days ago with walking. Denies CP, SOB, paresthesias, syncope. Started on lisinopril 10mg daily 4 days ago. No current symptoms HTN Urgency In ER afebrile, PA: 65, RR: 18, BP 210/78 down to 176/92 without medication, 97% on room air. No leukocytosis, H/H: , BUN: 24, Cr: 0.97, GFR: 68, CXR: no acute changes CT Head no acute changes -ER had ordered labetalol, however was held secondary to P: 58 -Continue lisinopril daily -Add amlodipine 2.5mg daily -UA pending -orthostatic vitals -Monitor CBC, BMP (2) Elevated troponin: Troponin: 0.094. EKG: sinus rhythm, q waves septal, LVH changes No CP, SOB Recent echo on 04/29/2019: Echo: EF: 63%, grade 1 diastolic dysfunction, severe aortic stenosis. -Trend troponin (3) Severe aortic stenosis: Following with cardiology. (4) BPH (benign prostatic hyperplasia): Pt had stopped finasteride and flomax several weeks ago secondary to thinking new bottle of medications caused him to have palpitation. Since with increased trouble with urination -Will restart tamsulosin and finasteride DVT Prophylaxis -Heparin SQ admit tele DNR/DNI as per discussion with pt Follows with Dr Johnson and [facility] for routine care Pt was seen and care coordinated with Dr Katz. See addendum History of Present Illness Chief Complaint: Dizziness Primary Care Provider: Vance Johnson, Pt is 89 y/o M with PMH BPH, severe aortic stenosis, HTN presented to ER with complaint of episode of dizziness today. Patient reports was started on lisinopril 10 mg daily 4 days ago by [place] [facility] in [place] for elevated BPs. Patient states he was found to have elevated blood pressure at [place] [facility] and at home BP readings for a week with continued elevated blood pressure. Patient states 2 days ago had dizziness with walking which resolved with sitting. Patient states this morning walked approximately fourth mile outside when he had onset of dizziness with blurry vision to his left eye. 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 Patient states stood still and stopped walking and symptoms resolved. He did not have his lisinopril this morning. Denies headache, syncope, chest pain, shortness of breath, palpitations, extremity weakness or paresthesias. Denies fever/chills, diaphoresis, N/V/D/C, syncope, neck pain, orthopnea, cough, sore throat, choking, otalgia, rhinorrhea, abdominal pain, paresthesias, weakness, extremity weakness, extremity edema, rashes, dysuria, hematuria. Patient followed with Dr. Anders on 04/25/2019 for reported bradycardia at night. At that time patient reported stopping taking finasteride and Flomax as he got a new bottle of medication he thought it was causing his heart to skip a beat. Reports since stopping medication he has been having difficulty with urination. 04/2019 - Had Holter monitor which showed sinus rhythm with tendency towards bradycardia, occasional PACs, rare PVCs, however couplets and bigeminy. No sy mptoms reported by patient, max heart rate 98, minimum heart rate 43, average heart rate 61. 04/29/2019: Echo: EF: 63%, grade 1 diastolic dysfunction, severe aortic stenosis. Allergies Allergy/AdvReac Type Severity Reaction Status Date / Time contrast dye Allergy Hives Uncoded 05/13/19 15:44 Home Medications Home Medications Medication Instructions Recorded Confirmed Type aspirin [Aspir-81] 81 mg PO DAILY 07/30/18 05/13/19 History calcium carbonate [Calcium 600] 600 mg PO DAILY 07/30/18 05/13/19 History dorzolamide 1 drp OPB BID 07/30/18 05/13/19 History finasteride [Proscar] 5 mg PO HS 07/30/18 05/13/19 History latanoprost 1 drp OPB QPM 07/30/18 05/13/19 History rosuvastatin 2.5 mg PO DAILY 07/30/18 05/13/19 History lisinopril 10 mg PO DAILY 05/13/19 05/13/19 History tamsulosin 0.4 mg PO DAILY 05/13/19 05/13/19 History Past Med/Surg History Medical History BPH (benign prostatic hyperplasia) Glaucoma Family History Other Diabetes Heart disease Hypertension Social History Preferred Language: Macedonian Communication Ability: Effective [employer] Required: No Beliefs That Will Affect Care: None marital status: Single Current Living Situation: Alone current occupational status: employed Feels Safe at Home: Yes Safety Concerns: Feels Safe At This Time Smoking Status: Never smoker Second Hand Exposure: No ; Hx Alcohol Use: No Hx Substance Use: No Review of Systems Review of Systems: All systems reviewed & are unremarkable except as noted in HPI & below Physical Exam Physical Exam: General: no distress, WDWN Head: normocephalic, atraumatic Eyes: right eye cloudy (chronic vision loss secondary to glaucoma). Left eye PERRL, EOM's intact, conjunctiva non-injected, anicteric ENT: normal inspection external ears, nose, mucous membranes moist Neck: supple, trachea midline Lungs: clear, no respiratory distress, no wheezing/rhonchi/rales CV: RRR, systolic murmur, no pretibial edema Abd: normal BS, soft, non-tender Ext: no cyanosis, no calf tenderness Neuro: A&O x 3, no focal deficits noted, normal affect Skin: warm, dry Results & Data Vital Signs (Past 12 Hours) Vital Signs Temp Pulse Pulse Resp BP BP Pulse Ox 05/13/19 17:35 56 L 56 L 18 176/92 H 96 05/13/19 13:04 36.8 C 65 18 210/78 H 97 Laboratory Results Short CBC 05/13/19 Range/Units 15:41 WBC 6.04 (4.8-10.8) K/uL Hgb 11.0 L (14.0-18.0) g/dL Hct 33.9 L (42-52) % Plt Count 169 (130-400) K/uL BMP 05/13/19 15:41 Sodium 135 L Potassium 4.6 Chloride 104 Carbon Dioxide 25 BUN 24 H Creatinine 0.97 Glucose 103 H Calcium 9.0 Cardiac Enzymes 05/13/19 Range/Units 15:41 Troponin I 0.094 H* (0-0.045) ng/ml Liver Function 05/13/19 Range/Units 15:41 Total Bilirubin 0.2 (0.2-1) mg/dl AST 19 (15-37) U/L ALT 16 (12-78) U/L Alkaline Phosphatase 65 (45-117) U/L Albumin 3.5 (3.4-5.0) gm/dl Urine 05/13/19 Range/Units 17:54 Urine Color Yellow Urine Appearance Clear (Clear) Urine pH 7.5 (4.5-7.5) Ur Specific [place] 1.018 (1.000-1.030) Urine Protein Negative (Negative) Urine Glucose (UA) Negative (Negative) Diagnostic Findings CXR: IMPRESSION: Chronic biapical reticulonodular thickening persists. No new focal lung consolidations. CT HEAD: Impression: No acute intracranial abnormality. ECG Rate (beats per minute): 60 Rhythm: sinus rhythm Findings: + Q waves (Septal) Additional Comments: LVH changes Code Status & VTE Plan VTE Prophylaxis Plan VTE Prophylaxis will be ordered: Yes Supervising Physician Co-Signing Physician Notes Attending addendum: The patient was seen and examined in emergency room He has severe aortic stenosis and recently diagnosed to have high blood pressure and has been on lisinopril 10 mg daily for the last 4 days He has been complaining of episodes of dizziness since this morning and he noted to have high blood pressure on home monitor Denies any chest pain, palpitation, shortness of breath. 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 No focal sensory or motor deficit appreciated Admission labs and imaging studies reviewed Presented with hypertensive urgency with history of severe aortic stenosis Continued his lisinopril and amlodipine was added to control blood pressure We will try 10 mg IV labetalol every 6 hourly for blood pressure more than 190 systolic Agree with assessment and plan as outlined above by PHILL Maher Dr
[2019-05-13 18:34] LABS: Appearance Urine Clear (Clear); Bilirubin Urine Negative (Negative); Blood Urine Negative (Negative); Color Urine Yellow; Glucose Urine UA Negative (Negative); Ketones Urine Negative (Negative); Leukocyte Esterase Urine Negative (Negative); Nitrite Urine Negative (Negative); Protein Urine Negative (Negative); Specific Gravity Urine 1.018 (1.000-1.030); Urobilinogen Urine Negative (Negative); pH Urine 7.5 (4.5-7.5)
[2019-05-13] MEDS ORDERED: ACETAMINOPHEN 325 MG TAB PO PRN (19:16)
[2019-05-13] MEDS ORDERED: AMLODIPINE BESYLATE 5 MG TAB PO ONE (19:16)
[2019-05-13] MEDS ORDERED: POLYETHYLENE (MIRALAX) 17 GM PACK PO PRN (19:16)
[2019-05-13] MEDS: DORZOLAMIDE HCL 2% OPH SOLN 10 ML BTL OPB SCH (20:24)
[2019-05-13] MEDS: HEPARIN SOD 5,000 UNIT/0.5 ML VIAL SQ SCH (20:28)
[2019-05-13] MEDS ORDERED: LATANOPROST 0.005% OP SOLN 2.5 ML BTL OPB SCH (21:00)
[2019-05-13] MEDS ORDERED: FINASTERIDE 5 MG TAB PO SCH (21:00)
--- NOTE | 2019-05-13 22:41 | Emergency Department Note ---
Entered by Abdon Shah acting as a scribe for History of Present Illness General Chief complaint: Hypertension Stated complaint: [facility] REF - POSSIBLE STROKE - DIZZINESS Time Seen by Provider: 05/13/19 15:05 Source: patient History of Present Illness Onset (ago): hour(s) 4 Location: ears, left and right Pain Consistency: + now resolved Maximum Pain Intensity: 0 Quality: + other (blurred vision) Exacerbated By: + other (Lisinopril) Associated symptoms: + denies other symptoms (complete loss of vision or double vision, vomiting), + headaches and + other (loss of balance); no chest pain and no shortness of breath The patient is an 89 y/o male who presents to the ED w/ CC of a resolved episode of blurred vision that occurred 4 hours ago and lasted one hour. The patient states he has had intermittent hypertension for the past few weeks. He reports his blood pressure has been in the 200s systolic. The patient notes he was placed on 10mg of Lisinopril four days ago and normally takes it once a day around noon. He states he has been taking them daily but did not take it today. The patient reports he did not take it because he had an episode of blurred vision while walking around the track. He notes this blurred vision lasted about an hour and did not have complete loss of vision or double vision. The patient states he also had a mild headache and a brief episode of loss of balance. He reports he is not sure if his loss of balance was from lack of coordination or general weakness. The patient notes he called his PCP, explained his symptoms, and was told to come to the ED. He states this is not the first time he has had these symptoms after being placed on Lisinopril. The patient denies a history of a stroke, chest pain, shortness of breath, and vomiting. Home Medications Home Medications Medication Instructions Recorded Confirmed Type aspirin [Aspir-81] 81 mg PO DAILY 07/30/18 05/13/19 History calcium carbonate [Calcium 600] 600 mg PO DAILY 07/30/18 05/13/19 History dorzolamide 1 drp OPB BID 07/30/18 05/13/19 History finasteride [Proscar] 5 mg PO HS 07/30/18 05/13/19 History latanoprost 1 drp OPB QPM 07/30/18 05/13/19 History rosuvastatin 2.5 mg PO DAILY 07/30/18 05/13/19 History lisinopril 10 mg PO DAILY 05/13/19 05/13/19 History tamsulosin 0.4 mg PO DAILY 05/13/19 05/13/19 History Allergies Allergy/AdvReac Type Severity Reaction Status Date / Time contrast dye Allergy Hives Uncoded 05/13/19 15:44 Past Med/Surg History Medical History BPH (benign prostatic hyperplasia) Glaucoma Family History Other Diabetes Heart disease Hypertension Social History Preferred Language: Telugu Communication Ability: Effective Disciplinary Hearing Officer Required: No Beliefs That Will Affect Care: None marital status: Single Current Living Situation: Alone current occupational status: employed Feels Safe at Home: Yes Safety Concerns: Feels Safe At This Time Smoking Status: Never smoker Second Hand Exposure: No ; Hx Alcohol Use: No Hx Substance Use: No Review of Systems See HPI for pertinent positives & negatives. and A total of 10 systems reviewed and were otherwise negative Physical Exam Vital Signs Vital Signs - 24 hr 05/13/19 13:04 Temperature 36.8 C Temperature Source Oral Pulse Rate 65 Respiratory Rate 18 Respiratory Effort / Characteristics Non-Labored Respiratory Depth Normal Respiratory Pattern Regular Blood Pressure 210/78 H Blood Pressure Mean 122 Blood Pressure Position Sitting Pulse Oximetry 97 Oxygen Delivery Method Room Air Sepsis Recent Fever Within 48 Hours No Sepsis New/Unexplained Change in Mental Status No Sepsis Action Taken by Nursing No Action Required Constitutional: Vital signs reviewed. Hard of hearing. Eyes: Pupils are equal round reactive to light. Conjunctiva are noninjected. ENT: Pharynx is clear without erythema or exudate. Mucous membranes are moist. Neck supple without meningeal signs. Respiratory: Clear to auscultation bilaterally. Breath sounds are equal bilaterally. Cardiovascular: Regular rate and rhythm. No rubs or gallops. GI: Soft, nondistended and nontender. Bowel sounds are present. Musculoskeletal: No peripheral edema. No lower extremity tenderness. Integumentary: No cyanosis. Neurological: The patient is awake and alert. Cranial nerves II-XII are intact. Motor is 5 out of 5 all extremities. Sensation is intact to light touch all extremities. Normal speech. No pronator drift. No limb ataxia. Psychiatric: Normal affect. Course Course 1507: The patient was evaluated in room C01B. A complete history and physical exam was performed. 1636: I reevaluated the patient. He is still hypertensive but is asymptomatic. He is agreeable to hospitalization and denies chest discomfort. The patient notes he did take an aspirin today. 1644: I reviewed the patient's case with Carmenza Martinez PA-C, [facility] Hospitalist, attending Dr. Katz. She will evaluate the patient for further management. 1712: I reevaluated the patient. His pressure was 176/92 with a heart rate in the 50s. The Labetalol was held. The hospitalist is going to see him now. Administered Medications Dorzolamide HCl (Trusopt 2% Oph) 1 drops OPB BID RAVINDRA Stop: 06/12/19 20:59 Last Admin: 05/13/19 20:24 Dose: 1 drops Documented by: [id number] Finasteride (Proscar) 5 mg PO HS RAVINDRA Stop: 06/12/19 20:59 Last Admin: 05/13/19 20:25 Dose: 5 mg Documented by: [id number] Heparin Sodium (Porcine) (Heparin Sodium (Porcine)) 5,000 units SQ Q12 RAVINDRA Stop: 06/12/19 20:59 Last Admin: 05/13/19 20:28 Dose: 5,000 units Documented by: [id number] Cosigned by: [id number] Latanoprost (Xalatan Oph) 1 drops OPB QPM RAVINDRA Stop: 06/12/19 20:59 Last Admin: 05/13/19 20:25 Dose: 1 drops Documented by: [id number] Discontinued Medications Amlodipine Besylate (Norvasc) 2.5 mg PO NOW ONE Stop: 05/13/19 19:17 Last Admin: 05/13/19 20:24 Dose: 2.5 mg Documented by: [id number] Labetalol HCl (Normodyne) 10 mg IV NOW STA Stop: 05/13/19 16:38 Last Admin: 05/13/19 17:15 Dose: Not Given Documented by: [id number] Labetalol HCl (Normodyne) 10 mg IV NOW STA Stop: 05/13/19 19:32 Last Admin: 05/13/19 20:22 Dose: 10 mg Documented by: [id number] Cosigned by: [id number] Lisinopril (Zestril) 10 mg PO ONE STA Stop: 05/13/19 17:33 Last Admin: 05/13/19 17:44 Dose: 10 mg Documented by: [id number] Medical Decision Making Differential Diagnosis Differential diagnosis includes: HTN emergency, medication side effect, medication non-compliance, CVA, ICH. Medical Records Attestation: I reviewed the patient's medical records. I did perform a limited focused review of portions of the patient's old chart on the electronic medical record. The patient has had no recent pertinent visits to this hospital. Home Medications Current Medication List: was personally reviewed by me Laboratory Data Attestation: I reviewed the patient's lab results. Result diagrams: 05/13/19 15:41 05/13/19 15:41 Lab Results 05/13/19 05/13/19 Range/Units 15:41 15:41 WBC 6.04 (4.8-10.8) K/uL RBC 3.71 L (4.7-6.1) M/uL Hgb 11.0 L (14.0-18.0) g/dL Hct 33.9 L (42-52) % MCV 91.4 (80-100) fL MCH 29.6 (25-34) pg MCHC 32.4 (32-36) g/dL RDW Std Deviation 44.2 (36.4-46.3) fL RDW Coeff of Lazarus 13.1 (11.5-14.5) % Plt Count 169 (130-400) K/uL MPV 11.4 H (7.4-10.4) fL Immature Gran % (Auto) 0.2 % Neut % (Auto) 62.8 % Lymph % (Auto) 25.3 % [place] % (Auto) 9.9 % Eos % (Auto) 1.5 % Baso % (Auto) 0.3 % Immature Gran # (Auto) 0.01 (0.00-0.02) K/uL Neut # (Auto) 3.79 (1.4-6.5) K/uL Lymph # (Auto) 1.53 (1.2-3.4) K/uL [place] # (Auto) 0.60 H (0.11-0.59) K/uL Eos # (Auto) 0.09 (0-0.5) K/uL Baso # (Auto) 0.02 (0-0.2) K/uL Sodium 135 L (136-145) mmol/L Potassium 4.6 (3.5-5.1) mmol/L Chloride 104 (98-107) mmol/L Carbon Dioxide 25 (21-32) mmol/L Anion Gap 6.0 (3-11) BUN 24 H (7-18) mg/dl Creatinine 0.97 (0.6-1.4) mg/dl Est Cr Clr Drug Dosing Not Reportable Est GFR ( Amer) 79.9 Est GFR (Non-Af Amer) 68.9 BUN/Creatinine Ratio 24.6 H (10-20) Glucose 103 H (70-99) mg/dl Calcium 9.0 (8.5-10.1) mg/dl Total Bilirubin 0.2 (0.2-1) mg/dl AST 19 (15-37) U/L ALT 16 (12-78) U/L Alkaline Phosphatase 65 (45-117) U/L Troponin I 0.094 H* (0-0.045) ng/ml Total Protein 7.5 (6.4-8.2) gm/dl Albumin 3.5 (3.4-5.0) gm/dl Globulin 4.0 (2.5-4.0) gm/dl Albumin/Globulin Ratio 0.9 (0.9-2) Imaging Data Radiologist's Impression: Radiology results as stated below per my review and the radiologist's interpretation: XR chest 1V portable HISTORY: Hypertension COMPARISON: Chest 07/30/2018. FINDINGS: No pneumothorax. No pleural effusions. The heart is normal in size. Biapical reticulonodular interstitial thickening and pleural thickening remains unchanged. No new focal lung consolidations. No evidence for pulmonary edema. IMPRESSION: Chronic biapical reticulonodular thickening persists. No new focal lung consoli dations. ACT 112: Negative or not required by law. Electronically signed by: Chente Barros M.D. 05/13/2019 3:[address] head/brain wo con CT DOSE: 537.48 mGy.cm HISTORY: Mental status change dizzy/visual blurring eval for cva/bleed TECHNIQUE: Multiaxial CT images of the head were performed without the use of intravenous contrast. A dose lowering technique was utilized adhering to the principles of ALARA. Comparison: None. Findings: Moderate mucosal thickening left maxillary sinus. Remaining sinuses are clear. The calvarium and skull base are intact. The ventricles and sulci are within normal limits. There is no mass, hematoma, midline shift, or acute infarct. Impression: No acute intracranial abnormality. ACT 112: Negative or not required by law. The above report was generated using voice recognition software. It may contain grammatical, syntax or spelling errors. Electronically signed by: Fabian Chou M.D. 05/13/2019 4:10 PM ECG Data Attestation: I personally reviewed and interpreted this ECG as follows: Indication: + other (dizziness) Rate (beats per minute): 60 Rhythm: + sinus rhythm ECG ST segments: no ST elevation ECG Findings: + Q waves (V1 only) and + Peaked T waves (lead III only); no PVCs Comparison ECG Date: from (07/30/18) Change: no significant change Blood Pressure Blood Pressure Findings: Elevated blood pressure Blood Pressure Disposition: further management by hospitalist BARBIE Casillas I did evaluate the patient as noted above. The patient has had significantly elevated blood pressures for the past several weeks. He was placed on lisinopril which she started approximately 4 days ago. He states that about an hour after taking the lisinopril he developed some lightheadedness and some visual blurring. This occurred today again while he was walking on a track. He states he did not take his lisinopril today. He was sent here by his doctor for further evaluation. On my examination he is neurologically intact. He is severely hypertensive. IV access was established. The patient was placed on a continuous property assessment monitor. I did order and personally review the patient's 12- lead EKG as described above. This twelve-lead EKG shows no acute ischemic changes. He does have abnormal findings as discussed above but they were present on his previous EKG from July. I did order and personally reviewed the i mages of the patient's chest x-ray as described above. He has some chronic changes without acute infiltrate. I did order and review the patient's blood work as noted in the electronic medical record. CBC is remarkable for an anemia. He has mild hyponatremia otherwise his electrolytes are unremarkable. He does have an elevated troponin. He states he has not had any chest discomfort or shortness of breath. His only symptom was weakness and visual blurring. I did order a CT of the head. I did review the images myself as well as the radiology report as described above. There is no evidence of acute intracranial abnormality. On reassessment I did discuss his test results. He still remains severely hypertensive. I did order labetalol IV and discussed the case with the hospitalist and manager case management. The patient later became bradycardic before receiving the labetalol so it was held and his repeat pressure was 176/92. He was seen by the hospital service and taken upstairs. Continuous Cardiac Monitoring: An order was placed for continuous cardiac monitoring due to severe hypertension and neurologic symptoms. The monitor shows a rate of 65 with a sinus rhythm. Impression & Plan Hypertensive emergency, Elevated troponin I measurement, Dizziness, Visual disturbance Discharge Plan Visit Data *Final* Discharge Date/Time: 05/13/19 18:55 Chief Complaint: Hypertension Stated Complaint: [facility] RE[facility] - POSSIBLE STROKE - DIZZINESS ED Provider: Sreedhar Stewart Discharge Problem: Hypertensive emergency, Elevated troponin I measurement, Dizziness, Visual disturbance Patient Disposition: Admitted As Inpatient Discharge Instructions Interventions: ED Discharge Assessment Last Done: 05/13/19 18:55 The renanibe's documentation has been prepared under my direction and personally reviewed by me in its entirety. I confirm that the note above accurately reflects all work, treatment, procedures, and medical decision making performed by me.
[2019-05-14 03:04] LABS: Hematocrit (blood only) 32.2 % (42-52); Hemoglobin 10.7 g/dL (14.0-18.0); Mean Corpuscular Hemoglobin 30.1 pg (25-34); Mean Corpuscular Hgb Conc 33.2 g/dL (32-36); Mean Corpuscular Volume 90.7 fL (80-100); Mean Platelet Volume 11.3 fL (7.4-10.4); Platelet Count 162 K/uL (130-400); RDW Standard Deviation 43.2 fL (36.4-46.3); Red Blood Count 3.55 M/uL (4.7-6.1); White Blood Count 5.09 K/uL (4.8-10.8)
[2019-05-14 03:30] LABS: BUN Creatinine Ratio 21.3 (10-20); Calcium 8.6 mg/dl (8.5-10.1); Creatinine Clr Calc Pharmacy 49.7 ml/min; Est GFR (African American) 87.5; Est GFR (Non-African American) 75.5; Potassium 4.1 mmol/L (3.5-5.1)
[2019-05-14 03:48] LABS: Troponin I 0.115 ng/ml (0-0.045)
[2019-05-14] MEDS ORDERED: lisinopriL 20 MG TAB PO STA (07:34)
[2019-05-14] MEDS: HEPARIN SOD 5,000 UNIT/0.5 ML VIAL SQ SCH (08:21)
[2019-05-14] MEDS: DORZOLAMIDE HCL 2% OPH SOLN 10 ML BTL OPB SCH (08:25)
[2019-05-14] MEDS ORDERED: ROSUVASTATIN CALCIUM 5 MG TAB PO SCH (09:00)
[2019-05-14] MEDS ORDERED: ASPIRIN 81 MG ECTAB PO SCH (09:00)
[2019-05-14] MEDS ORDERED: TAMSULOSIN HCL 0.4 MG CAP PO SCH (09:00)
[2019-05-14] MEDS ORDERED: CALCIUM CARBONATE 1250MG TAB PO SCH (09:00)
[2019-05-14] MEDS ORDERED: lisinopriL 10 MG TAB PO SCH ×2 (09:00)
[2019-05-14] MEDS ORDERED: AMLODIPINE BESYLATE 5 MG TAB PO SCH ×2 (09:00)
[2019-05-14] MEDS ORDERED: ACETAMINOPHEN 325 MG TAB PO PRN (12:18)
[2019-05-14] MEDS ORDERED: AMLODIPINE BESYLATE 5 MG TAB PO ONE (14:13)
--- NOTE | 2019-05-14 15:43 | Hospitalist Progress Note ---
Date of Service May 14, 2019 Assessment & Plan (1) HTN (hypertension): Hypertensive crisis based on presenting visual symptoms and elevated troponins without chest pain Hypertension with severe aortic stenosis -Pt is 89 y/o M with PMH BPH, severe aortic stenosis, HTN presented to ER on 05/13/2019 with complaint of episode of dizziness. Today with dizziness after walking 1/4mile with some blurry vision. Reported dizziness 2 days ago with walking. Denies CP, SOB, paresthesias, syncope. Started on lisinopril 10mg daily 4 days prior to hospital presentation -In ER afebrile, PA: 65, RR: 18, BP 210/78 down to 176/92 without medication, 97% on room air. No leukocytosis, H/H: /33, BUN: 24, Cr: 0.97, GFR: 68, CXR: no acute changes -have titrated up hypertension medications -discharge medications of amlodipine 10 mg daily and lisinopril 20 mg daily sent electronically to [facility] [address] [place] [address], [place] [address] upcoming appointments 05/19/2019 8:45 AM Provider Annie Ramos MD Department Urology, [facility] 05/20/2019 9:40 AM Provider Vance Johnson DO Department General Internal Medicine [facility] 06/09/2019 at 12:45 PM Provider John Anders DO Department Cardiology, [facility] 08/05/2019 8:30 AM Provider John Anders DO Department Cardiology, [facility] patient should also be see by an soldering machine operator after the hspital stay (2) Elevated troponin: -Troponin: 0.094. EKG: sinus rhythm, q waves septal, LVH changes -No CP, SOB -Recent echo on 04/29/2019: Echo: EF: 63%, grade 1 diastolic dysfunction, severe aortic stenosis. -second troponin peaked at 0.211 and then downtrended -outpatient cardiology follow up with Dr. Anders on further planning if candidate for aortic valve repair. for now discharge to home and continue hypertension optimization (3) Severe aortic stenosis: -Following with cardiology as outpatient (4) BPH (benign prostatic hyperplasia): Pt had stopped finasteride and flomax several weeks ago secondary to thinking new bottle of medications caused him to have palpitation. Since with increased trouble with urination -on tamsulosin and finasteride, continue DNR/DNI Admission and Anticipated Discharge Date Admission Date: May 13, 2019 Subjective breathing on room air. no chest pain. no palpitations. denies blurred vision. no dizziness. no abdomen pain. discharge follow ups and instructions discussed with patient and his family members. Review of Systems Review of Systems: All systems reviewed & are unremarkable except as noted in HPI & below Physical Exam Constitutional: comfortable Eyes: PERRL, conjunctivae normal, anicteric sclerae EOM intact bilaterally ENMT: external ear and nose normal, oropharynx normal Neck: normal visual inspection Respiratory: normal respiratory effort Cardiovascular: Rate/Rhythm: regular rate Gastrointestinal (Abdomen): normal bowel sounds, soft, nontender, no hepatosplenomegaly Musculoskeletal: Head/Neck/Chest: normocephalic and head atraumatic Neurologic: PERRL, EOMI, accommodation nl, no face palsy, no dysarthria CN's II-XI intact bilaterally Psychiatric: Orientation: alert and cooperative Results & Data ([facility]) Vital Signs (Past 12 Hours) Vital Signs Temp Pulse Pulse Resp BP BP Pulse Ox 05/14/19 15:25 36.6 C 70 18 155/72 H 180/73 H 99 05/14/19 15:10 70 155/72 H 05/14/19 14:35 36.6 C 55 L 18 99 05/14/19 13:07 36.6 C 55 L 18 163/68 H 180/73 H 99 05/14/19 12:45 36.6 C 55 L 18 163/68 H 180/73 H 99 05/14/19 12:30 36.9 C 51 L 16 133/60 133/60 100 05/14/19 07:30 36.6 C 55 L 18 180/73 H 05/14/19 07:00 36.6 C 53 L 58 L 18 163/68 H 99 05/14/19 04:33 36.9 C 56 L 20 176/76 H 97
--- NOTE | 2019-05-14 15:48 | Discharge Summary ---
Date of Service May 14, 2019 Admission HPI Per Admitting Provider Pt is 89 y/o M with PMH BPH, severe aortic stenosis, HTN presented to ER with complaint of episode of dizziness today. Patient reports was [facility] [place] [facility]. Patient states he was found to [facility] and at home BP readings for a week with continued elevated blood pressure. Patient states 2 days ago had dizziness with walking which resolved with sitting. Patient states this morning walked approximately fourth mile outside when he had onset of dizziness with blurry vision to his left eye. 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 Patient states stood still and stopped walking and symptoms resolved. He did not have his lisinopril this morning. Denies headache, syncope, chest pain, shortness of breath, palpitations, extremity weakness or paresthesias. Denies fever/chills, diaphoresis, N/V/D/C, syncope, neck pain, orthopnea, cough, sore throat, choking, otalgia, rhinorrhea, abdominal pain, paresthesias, weakness, extremity weakness, extremity edema, rashes, dysuria, hematuria. Patient followed with Dr. Anders on 04/25/2019 for reported bradycardia at night. At that time patient reported stopping taking finasteride and Flomax as he got a new bottle of medication he thought it was causing his heart to skip a beat. Reports since stopping medication he has been having difficulty with urination. 04/2019 - Had Holter monitor which showed sinus rhythm with tendency towards bradycardia, occasional PACs, rare PVCs, however couplets and bigeminy. No symptoms reported by patient, max heart rate 98, minimum heart rate 43, average heart rate 61. 04/29/2019: Echo: EF: 63%, grade 1 diastolic dysfunction, severe aortic stenosis. Admission Exam Per Admitting Provider General: no distress, WDWN Head: normocephalic, atraumatic Eyes: right eye cloudy (chronic vision loss secondary to glaucoma). Left eye PERRL, EOM's intact, conjunctiva non-injected, anicteric ENT: normal inspection external ears, nose, mucous membranes moist Neck: supple, trachea midline Lungs: clear, no respiratory distress, no wheezing/rhonchi/rales CV: RRR, systolic murmur, no pretibial edema Abd: normal BS, soft, non-tender Ext: no cyanosis, no calf tenderness Neuro: A&O x 3, no focal deficits noted, normal affect Skin: warm, dry Principal Diagnosis Hypertensive crisis based on presenting visual symptoms and elevated troponins without chest pain Hypertension with severe aortic stenosis BPH (benign prostatic hyperplasia) Discharge Exam Constitutional comfortable Eyes PERRL, conjunctivae normal, anicteric sclerae EOM intact bilaterally ENMT external ear and nose normal, oropharynx normal Neck normal visual inspection Respiratory normal respiratory effort Cardiovascular Rate/Rhythm: regular rate Gastrointestinal (Abdomen) normal bowel sounds, soft, nontender, no hepatosplenomegaly Musculoskeletal Head/Neck/Chest: normocephalic and head atraumatic Neurologic PERRL, EOMI, accommodation nl, no face palsy, no dysarthria CN's II-XI intact bilaterally Psychiatric Orientation: alert and cooperative Discharge Data Allergies Allergy/AdvReac Type Severity Reaction Status Date / Time contrast dye Allergy Hives Uncoded 05/13/19 15:44 Consultations 05/13/19 16:37 ED Decision to Admit Stat 05/13/19 19:16 Consult Case Management - Discharge Planning Routine 05/14/19 07:34 Consult Case Management - Discharge Planning Routine Ordered Studies 05/13/19 15:25 CT head/brain wo con Stat Hospital Course (1) HTN (hypertension): Hypertensive crisis based on presenting visual symptoms and elevated troponins without chest pain Hypertension with severe aortic stenosis -Pt is 89 y/o M with PMH BPH, severe aortic stenosis, HTN presented to ER on 05/13/2019 with complaint of episode of dizziness. Today with dizziness after walking 1/4mile with some blurry vision. Reported dizziness 2 days ago with walking. Denies CP, SOB, paresthesias, syncope. Started on lisinopril 10mg daily 4 days prior to hospital presentation -In ER afebrile, PA: 65, RR: 18, BP 210/78 down to 176/92 without medication, 97% on room air. No leukocytosis, H/H: , BUN: 24, Cr: 0.97, GFR: 68, CXR: no acute changes -have titrated up hypertension medications -discharge medications of amlodipine 10 mg daily and lisinopril 20 mg daily sent electronically to [facility] [address] [place] [address], [place] [address] upcoming appointments 05/19/2019 8:45 AM Provider Annie Ramos MD Department Urology, [facility] 05/20/2019 9:40 AM Provider Vance Johnson DO Department General Internal Medicine [facility] 06/09/2019 at 12:45 PM Provider John Anders DO Department Cardiology, [facility] 08/05/2019 8:30 AM Provider John Anders DO Department Cardiology, [facility] patient should also be see by an hourly manager after the hspital stay (2) Elevated troponin: -Troponin: 0.094. EKG: sinus rhythm, q waves septal, LVH changes -No CP, SOB -Recent echo on 04/29/2019: Echo: EF: 63%, grade 1 diastolic dysfunction, severe aortic stenosis. -second troponin peaked at 0.211 and then downtrended -outpatient cardiology follow up with Dr. Anders on further planning if candidate for aortic valve repair. for now discharge to home and continue hypertension optimization (3) Severe aortic stenosis: -Following with cardiology as outpatient (4) BPH (benign prostatic hyperplasia): Pt had stopped finasteride and flomax several weeks ago secondary to thinking new bottle of medications caused him to have palpitation. Since with increased trouble with urination -on tamsulosin and finasteride, continue DNR/DNI Total Time Total Time Spent Total Time Spent (In Minutes): 40 minutes Total Time Includes: Examination of the Patient, Discharge Planning, Medication Reconciliation and Communication With Other Providers Discharge Plan Discharge Items Patient Disposition: Home - Self-Care Reason For Visit: HTN Discharge Diagnosis: Hypertensive crisis based on presenting visual symptoms and elevated troponins without chest pain Hypertension with severe aortic stenosis BPH (benign prostatic hyperplasia) Condition on Discharge: Good Activity: Per Instructions section Non-emergency contact: Primary Care Provider and Specialist Call non-emergency contact if: you have any medication questions Follow-up/Referrals: Vance Johnson DO [Primary Care Provider] - 05/20/19 9:40 am Diet: Heart Healthy Addtl Attending Provider Instructions: discharge medications of amlodipine 10 mg daily and lisinopril 20 mg daily [facility] electronically to [facility] [place] [address] upcoming appointments 05/19/2019 8:45 AM Provider Annie Ramos MD Department Urology, [facility] 05/20/2019 9:40 AM Provider Vance Johnson DO Department General Internal Medicine [facility] 06/09/2019 at 12:45 PM Provider John Anders DO Department Cardiology, [facility] 08/05/2019 8:30 AM Provider John Anders DO Department Cardiology, [facility] patient should also be see by an hourly manager after the hspital stay Pending Studies at Discharge: No Stand-Alone Forms: My [facility], Smoking Cessation Medications and DC Order Prescriptions: New amlodipine 5 mg tablet 5 mg PO DAILY 30 Days Qty: 30 RF: 0 lisinopril 20 mg Tablet 20 mg PO QAM 30 Days Qty: 30 RF: 0 amlodipine 5 mg tablet 10 mg PO DAILY 30 Days Qty: 60 RF: 0 Continued latanoprost 0.005 % drops 1 drp OPB QPM RF: 0 aspirin [Aspir-81] 81 mg Tablet,Delayed Release (Dr/Ec) 81 mg PO DAILY RF: 0 calcium carbonate [Calcium 600] 600 mg calcium (1,500 mg) Tablet 600 mg PO DAILY RF: 0 finasteride [Proscar] 5 mg Tablet 5 mg PO HS RF: 0 dorzolamide 2 % Drops 1 drp OPB BID RF: 0 rosuvastatin 5 mg Tablet 2.5 mg PO DAILY RF: 0 tamsulosin 0.4 mg capsule 0.4 mg PO DAILY RF: 0 Discontinued lisinopril 10 mg tablet 10 mg PO DAILY RF: 0 Discharge Orders: Discharge Order (Routine); Ordered 05/14/19 Ordered By: Deepak Kincaid Admission Data Admit Date/Time: 05/13/19 17:26 Attending Provider: Deepak Kincaid Admit Provider: Jorge Katz Primary Care Provider: Vance Johnson Other Providers: Jorge Katz Other Interventions: Discharge Summary Assessment (RN) Last Done: 05/14/19 15:25
[2019-05-15] MEDS ORDERED: AMLODIPINE BESYLATE 5 MG TAB PO SCH (09:00)
[2019-05-15] MEDS ORDERED: lisinopriL 20 MG TAB PO SCH (09:00)
== END 2019-05-14 16:00 | disposition home or self-care (01) | DRG 305 ==
LOC: ED 12:59 → SUATTDRO 17:26 → 2N 17:26